=== PATIENT | male | born 1995 | race Caucasian/White ===

== ENCOUNTER 2021-01-04 06:14 | Emergency (ER) | payer OTHER ==
[~2021-01-04] VITALS: Ht 172.7 cm; Wt 79.5 kg
[2021-01-04 06:26] VITALS: BP 127/84; TEMP 97.9
[2021-01-04] MEDS ORDERED: CLEOCIN HCL300 MG PO (07:23)
[2021-01-04 08:32] VITALS: PULSE 85
[2021-01-04 09:10] LABS: HIV 1/2 Antibodies Non-Reactive; HIV-1p24 Antigen Non-Reactive
[2021-01-04 17:25] LABS: HEPATITIS B SURFACE ANTIGEN Negative (Negative); HEPATITIS C VIRUS ANTIBODY Negative (Negative)
== END 2021-01-04 08:32 | disposition home or self-care (01) ==
LOC: COL.ER 06:14
PROVIDERS: Emergency Medicine
DX: S50.872A Other superficial bite of left forearm, initial encounter (principal); Y04.1XXA Assault by human bite, initial encounter